=== PATIENT | male | born 1975 | race Caucasian/White ===

== ENCOUNTER 2016-10-03 15:01 | Observation (INO) | payer BC ==
[2016-10-03] MEDS ORDERED: Pepcid 20 MG VIAL IV ONE ×2 (15:18→15:23)
[2016-10-03] MEDS ORDERED: NITRO-BID 2% UD PACKETS TOP ONE (15:18)
[2016-10-03] MEDS ORDERED: BABY ASPIRIN 81 MG CHEW PO ONE (15:18)
[2016-10-03] MEDS ORDERED: NITRO-BID 2% UD PACKETS ONE (15:23)
[2016-10-03] MEDS ORDERED: BABY ASPIRIN 81 MG CHEW ONE (15:23)
--- NOTE | 2016-10-03 15:23 | ERPHSYRPT ---
- History of Present Illness Time Seen by Provider: 10/03/16 15:06 Historian: patient Patient Subjective Stated Complaint: pt states he was at work and at 1400 he began having chest pain. pt states he has had similar episodes in the past and seen Dr. Chandler for treatment. Triage Nursing Assessment: pt pink, warm, dry. radial pulses strong. lung sounds clear and equal. Physician History: CC: chest pain hx: 41 y/o patient with no local doctor. He has fam hx of heart disease. He had prior testing per Dr Chandler showing weakened heart valve and cardiac muscle problem. He was at work today. Noted left chest pressure like someone sitting on the chest with pain in the left arm and tingle in the left hand. Some sharp chest pains as well. Continues to have pain. Not short of breath. Recent cough and cold illness. 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 Severity of Pain-Max: moderate Severity of Pain-Current: moderate Aspirin Treatment Today: 81 mg x 4, provided by ED Allergies/Adverse Reactions: amoxicillin trihydrate [From Augmentin] Allergy (Mild, Verified 10/03/16 15:07) Hives azithromycin [From Zithromax] Allergy (Mild, Verified 10/03/16 15:07) Hives morphine Allergy (Mild, Verified 10/03/16 15:07) Hives potassium clavulanate [From Augmentin] Allergy (Mild, Verified 10/03/16 15:07) Hives Penicillins Allergy (Verified 10/03/16 15:07) Home Medications: Acetaminophen/Chlorpheniramine [Coricidin Hbp Cold & Flu Tab] 1 each PO DAILY [History] Hx Tetanus, Diphtheria Vaccination/Date Given: Yes (up to date) Hx Influenza Vaccination/Date Given: No Hx Pneumococcal Vaccination/Date Given: No Immunizations Up to Date: Yes - Review of Systems Constitutional: No Fever, No Chills Eyes: No Symptoms Ears, Nose, & Throat: No Symptoms Respiratory: No Cough, No Dyspnea Cardiac: Chest Pain, No Edema, No Syncope Abdominal/Gastrointestinal: No Abdominal Pain, No Nausea, No Vomiting Genitourinary Symptoms: No Dysuria Musculoskeletal: No Back Pain Skin: No Rash Neurological: No Headache All Other Systems: Reviewed and Negative - Past Medical History Pertinent Past Medical History: Yes Neurological History: Migraines ENT History: No Pertinent History Cardiac History: No Pertinent History Respiratory History: No Pertinent History Endocrine Medical History: No Pertinent History Musculoskeletal History: Other GI Medical History: No Pertinent History History: No Pertinent History Psycho-Social History: No Pertinent History Male Reproductive Disorders: No Pertinent History Other Medical History: left shoulder detached labum - Past Surgical History Past Surgical History: Yes Neuro Surgical History: No Pertinent History Cardiac: No Pertinent History Respiratory: No Pertinent History Gastrointestinal: Cholecystectomy Genitourinary: No Pertinent History Musculoskeletal: Orthopedic Surgery Male Surgical History: No Pertinent History Other Surgical History: pt has fingers reattached. left shoulder repair - Social History Smoking Status: Current every day smoker How long have you smoked: 27 Exposure to second hand smoke: No Alcohol Use: None Drug Use: none Patient Lives Alone: No Significant Family History: no pertinent family hx - Nursing Vital Signs Temperature: 98 F Temperature Source: Oral Pulse Rate: 81 Respiratory Rate: 20 Pain Intensity: 8 - Physical Exam General Appearance: alert Eye Exam: PERRL/EOMI Ears, Nose, Throat Exam: normal ENT inspection, moist mucous membranes Neck Exam: normal inspection, non-tender, supple Respiratory Exam: normal breath sounds, lungs clear Cardiovascular Exam: regular rate/rhythm, other (2+ femoral pulses), No murmur Gastrointestinal/Abdomen Exam: soft, No tenderness, No distention Back Exam: normal inspection Extremity Exam: normal inspection Neurologic Exam: alert, oriented x 3, cooperative, sensation nml, No motor deficits Skin Exam: warm, dry, No rash SpO2 Interpretation: normal SpO2: 99 Oxygen Delivery: Room Air - Course Nursing assessment & vital signs reviewed: Yes EKG Interpreted by Me: RATE (74), Sinus Rhythm, NORMAL AXIS, NORMAL INTERVALS ( QTc 411), NORMAL QRS, NORMAL ST-T - Radiology Exams cxr X-ray Interpretation: Discussed w/ radiologist, Negative Ordered Tests: Active Orders 24 hr Category Date Time Status 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 Care 10/03/16 15:08 Active EKG-ER Only STAT Care 10/03/16 15:08 Active IV Insertion STAT Care 10/03/16 15:18 Active Pulse Oximetry (ED) STAT Care 10/03/16 15:09 Active CHEST 1 VIEW (PORTABLE) Stat Exams 10/03/16 15:19 Completed CBC W DIFF Stat Lab 10/03/16 15:24 Completed CMP Stat Lab 10/03/16 15:24 Completed TROPONIN Q3H Lab 10/03/16 15:30 Completed TROPONIN Q3H Lab 10/03/16 18:30 Ordered TROPONIN Q3H Lab 10/03/16 21:30 Ordered TROPONIN Q3H Lab 10/04/16 00:30 Ordered TROPONIN Q3H Lab 10/04/16 03:30 Ordered Medication Summary Discontinued Medications Generic Name Dose Route Start Last Admin Trade Name Freq PRN Reason Stop Dose Admin Aspirin 324 mg 10/03/16 15:18 10/03/16 15:24 Baby Aspirin 81 Mg Chew PO 10/03/16 15:19 324 mg STAT ONE Administration Aspirin Confirm 10/03/16 15:23 Baby Aspirin 81 Mg Chew Administered 10/03/16 15:24 Dose 324 mg .ROUTE .STK-MED ONE Famotidine 20 mg 10/03/16 15:18 10/03/16 15:24 Pepcid 20 Mg Vial IV 10/03/16 15:19 20 mg STAT ONE Administration Famotidine Confirm 10/03/16 15:23 Pepcid 20 Mg Vial Administered 10/03/16 15:24 Dose 20 mg IV .STK-MED ONE Nitroglycerin 1 gm 10/03/16 15:18 10/03/16 15:24 Nitro-Bid 2% Ud Packets TOP 10/03/16 15:19 1 gm STAT ONE Administration Nitroglycerin Confirm 10/03/16 15:23 Nitro-Bid 2% Ud Packets Administered 10/03/16 15:24 Dose 1 gm .ROUTE .STK-MED ONE Lab/Rad Data: Laboratory Result Diagrams 10/03/16 15:24 10/03/16 15:24 Laboratory Results 10/03/16 10/03/16 10/03/16 Range/Units 15:30 15:24 15:24 WBC 8.2 (4.0-10.5) K/mm3 RBC 4.84 (4.1-5.6) M/mm3 Hgb 15.0 (12.5-18.0) gm/dl Hct 44.2 (42-50) % MCV 91.3 (78-100) fl MCH 31.0 (26-32) pg MCHC 33.9 (32-36) g/dl RDW 12.4 (11.5-14.0) % Plt Count 275 (150-450) K/mm3 MPV 9.8 H (6-9.5) fl Gran % 55.3 (36.0-66.0) % Lymphocytes % 36.1 (24.0-44.0) % Monocytes % 7.0 (0.0-12.0) % Eosinophils % 1.1 (0.00-5.0) % Basophils % 0.5 (0.0-0.4) % Basophils # 0.04 (0-0.4) Sodium 140 (136-145) mEq/L Potassium 3.5 (3.5-5.1) mEq/L Chloride 101 (98-107) mEq/L Carbon Dioxide 25.5 (21-32) mEq/L Anion Gap 16.7 H (5-15) MEQ/L BUN 14 (9-20) mg/dL Creatinine 1.10 (0.55-1.30) mg/dl Estimated GFR > 60 ML/MIN Glucose 108 (70-110) MG/DL Calcium 9.2 (8.5-10.1) mg/dL Total Bilirubin 0.4 (0.2-1.0) mg/dL AST 27 (15-37) U/L ALT 55 (12-78) U/L Alkaline Phosphatase 76 (46-116) U/L Troponin I < 0.017 (0.000-0.056) ng/ml Serum Total Protein 8.0 (6.4-8.2) gm/dL Albumin 4.1 (3.4-5.0) g/dL - Progress Progress Note: 10/03/16 16:29 Prior echo showed diastolic dysfunction and EF 60%. Normal stress treadmill last week. Pain improved with NTG paste. Called Dr Sherly Navarro and will place in tele observation. Counseled pt/family regarding: lab results, diagnosis, need for follow-up, rad results - Departure Time of Disposition: 16:29 Departure Disposition: Observation Clinical Impression: Chest pain, rule out acute myocardial infarction Condition: Stable Critical Care Time: No
[2016-10-03 15:30] LABS: BASOPHIL % 0.5 % (0.0-0.4); Eosinophil % 1.1 % (0.00-5.0); Granulocytes % 55.3 % (36.0-66.0); Lymphocytes % 36.1 % (24.0-44.0); Mean Cell Volume 91.3 fl (78-100); Mean Platelet Volume 9.8 fl (6-9.5); Platelet Count 275 K/mm3 (150-450); Red Blood Count 4.84 M/mm3 (4.1-5.6); Red Cell Distribution Width 12.4 % (11.5-14.0); White Blood Count 8.2 K/mm3 (4.0-10.5)
[2016-10-03 15:51] LABS: ALBUMIN 4.1 g/dL (3.4-5.0); ALKALINE PHOSPHATASE 76 U/L (46-116); ANION GAP 16.7 MEQ/L (5-15); BILIRUBIN,TOTAL 0.4 mg/dL (0.2-1.0); BLOOD UREA NITROGEN 14 mg/dL (9-20); CHLORIDE 101 mEq/L (98-107); Carbon Dioxide 25.5 mEq/L (21-32); Glucose 108 MG/DL (70-110); Potassium 3.5 mEq/L (3.5-5.1); SGOT/AST 27 U/L (15-37); SGPT/ALT 55 U/L (12-78); SODIUM 140 mEq/L (136-145)
--- NOTE | 2016-10-03 15:51 | XRAY ---
Indication: Chest pain. Comparison: July 04, 2016. Portable chest again demonstrates normal heart and lungs. Bony thorax intact. No new/acute findings.
[2016-10-03] MEDS ORDERED: Zofran 4 MG/2 ML VIAL IV PRN (16:58)
[2016-10-03] MEDS ORDERED: MAALOX ES 30 ML UNIT DOSE PO PRN (16:58)
[2016-10-03] MEDS ORDERED: MILK OF MAGNESIA 30 ML PO PRN (16:58)
[2016-10-03] MEDS ORDERED: Senokot-S Tablet PO PRN (16:58)
[2016-10-03] MEDS ORDERED: NICODERM CQ 14 MG TOP SCH (18:30)
[2016-10-03] MEDS: NITRO-BID 2% UD PACKETS TOP SCH (22:36)
[2016-10-03] MEDS: TYLENOL 325 MG PO PRN (22:41)
[2016-10-04] MEDS: TYLENOL 325 MG PO PRN (04:01)
[2016-10-04] MEDS: NITRO-BID 2% UD PACKETS TOP SCH (06:42)
[2016-10-04 07:28] VITALS: BP 97/52; PULSE 61; O2SAT 96
--- NOTE | 2016-10-04 08:10 | PCM.HP ---
History of Present Illness - Chief Complaint Chief Complaint: CHEST PAIN R/O OH Date: 10/04/16 History of Present Illness: is a 41 year old male. stress test and echo done 06/2016 Dr. Chandler with no ischemia and the Echo with diastolic dysfunction and LVH. He was having this for chest pains at that time as well. He did not have a consult with Dr. Chandler just the testing ordered by his pcp. Yesterday he began to develop sharp pains with deep breathing or with beating of his heart on the left side of his chest and tingling sharp feelings in his left arm. He has strong family hx of heart disease and thus presented to the ED. He was given nitro and that seemed to improve the pain. He denies any coughing or injury. He smokes and denies illicit drug use or excess caffeine. Slowly overnight the pain has eased up and he does not have any pain this morning. THe nitro was removed early this am due to low bp and the chest pain has not recurred yet. THere was no improvement in the pain with positional changes. - Review of Systems Constitutional: No Fever, No Chills Eyes: No Symptoms Ears, Nose, & Throat: No Symptoms Respiratory: No Cough, No Short Of Breath Cardiac: Chest Pain, Palpitations (chronic), No Edema, No Syncope, No Orthopnea , No PND Abdominal/Gastrointestinal: No Abdominal Pain, No Nausea, No Vomiting, No Diarrhea Genitourinary Symptoms: No Dysuria Musculoskeletal: No Back Pain, No Neck Pain Skin: No Rash Neurological: No Dizziness, No Focal Weakness, No Sensory Changes Psychological: No Symptoms Endocrine: No Symptoms Hematologic/Lymphatic: No Symptoms Immunological/Allergic: No Symptoms Medications & Allergies Home Medications: Home Medication List Acetaminophen/Chlorpheniramine [Coricidin Hbp Cold & Flu Tab] 1 each PO DAILY [History Confirmed 10/03/16] Acetaminophen/Chlorpheniramine [Coricidin Hbp Cold & Flu Tab] 1 each PO HS 10/03 [History Confirmed 10/03/16] Allergies/Adverse Reactions: Allergies Allergy/AdvReac Type Severity Reaction Status Date / Time amoxicillin trihydrate Allergy Mild Hives Verified 10/03/16 15:07 [From Augmentin] azithromycin [From Zithromax] Allergy Mild Hives Verified 10/03/16 15:07 morphine Allergy Mild Hives Verified 10/03/16 15:07 potassium clavulanate Allergy Mild Hives Verified 10/03/16 15:07 [From Augmentin] Penicillins Allergy Verified 10/03/16 15:07 - Past Medical History Past Medical History: Yes Neurological History: Migraines ENT History: No Pertinent History Cardiac History: Angina Respiratory History: No Pertinent History Endocrine Medical History: No Pertinent History Musculoskelatal History: Other GI Medical History: No Pertinent History History: No Pertinent History Pyscho-Social History: No Pertinent History Male Reproductive Disorders: No Pertinent History Comment: left shoulder detached labum - Past Surgical History Past Surgical History: Yes Neuro Surgical History: No Pertinent History Cardiac History: No Pertinent History Respiratory Surgery: No Pertinent History GI Surgical History: Cholecystectomy Genitourinary Surgical Hx: No Pertinent History Musculskeletal Surgical Hx: Orthopedic Surgery Male Surgical History: No Pertinent History Other Surgical History: pt has fingers reattached. left shoulder repair - Social History Smoking Status: Current every day smoker How long have you smoked: 26 YEARS Exposure to second hand smoke: No Alcohol: None Drug Use: none Significant Family History: no pertinent family hx - Physical Exam Vital Signs: Vital Signs - 24 hr Temp Pulse Pulse Resp BP Pulse Ox 10/04/16 07:27 98.1 F 61 18 97/52 96 10/04/16 04:00 97.7 F 54 L 19 103/59 97 10/03/16 23:18 97.7 F 55 L 18 119/68 96 10/03/16 19:39 97.4 F 64 19 127/58 96 10/03/16 16:58 98.7 F 71 18 132/80 98 10/03/16 16:33 98 F 81 20 99 10/03/16 15:53 99 H 18 143/70 100 10/03/16 15:14 79 10/03/16 15:09 99 10/03/16 15:02 98 F 81 20 153/91 99 General Appearance: no apparent distress, alert Neurologic Exam: alert, oriented x 3, cooperative, normal mood/affect, nml cerebellar function, nml station & gait, sensation nml, No motor deficits Eye Exam: PERRL/EOMI, eyes nml inspection Ears, Nose, Throat Exam: normal ENT inspection, TMs normal, pharynx normal, moist mucous membranes Neck Exam: normal inspection, non-tender, supple, full range of motion Respiratory Exam: normal breath sounds, lungs clear, No respiratory distress Cardiovascular Exam: regular rate/rhythm, normal heart sounds, normal peripheral pulses Gastrointestinal/Abdomen Exam: soft, normal bowel sounds, No tenderness, No mass Back Exam: normal inspection, normal range of motion, No CVA tenderness, No vertebral tenderness Extremity Exam: normal inspection, normal range of motion, pelvis stable Skin Exam: normal color, warm, dry, No rash Lymphatic Exam: No adenopathy Results - Labs Lab/Micro Results: Lab Results-Last 24 Hours 10/03/16 10/03/16 10/04/16 Range/Units 18:42 21:23 00:26 Troponin I < 0.017 < 0.017 < 0.017 (0.000-0.056) ng/ml Triglycerides (30-200) mg/dL Cholesterol (100-200) mg/dL LDL Cholesterol (5-99) mg/dL HDL Cholesterol (35-60) mg/dL Heart Disease Risk Ratio 10/04/16 10/04/16 Range/Units 03:34 03:34 Troponin I < 0.017 (0.000-0.056) ng/ml Triglycerides 112 (30-200) mg/dL Cholesterol 204 H (100-200) mg/dL LDL Cholesterol 141 H (5-99) mg/dL HDL Cholesterol 46 (35-60) mg/dL Heart Disease Risk Ratio 4.4 - Other Procedures and Tests Respiratory Therapy 10/05/16 05:00 EKG ONCE 10/06/16 05:00 EKG ONCE Assessment/Plan (1) Chest pain, rule out acute myocardial infarction Current Visit: Yes Status: Acute Assessment & Plan: it seems with the sharp pains with the deep breathing and the improvement with no troponin elevation this was not an OH. He does have J point elevation in diffuse leads and may be having mild pericarditis explaining the pain. There is no murmur now and he is asymptomatic this am with the recent cardiac work up 3 months ago will defer further testing now to cardiology and set up outpatient f/u appointment with DR. Chandler Code(s): R07.9 - CHEST PAIN, UNSPECIFIED (2) LVH (left ventricular hypertrophy) Current Visit: Yes Status: Chronic Code(s): I51.7 - CARDIOMEGALY (3) Tobacco abuse Current Visit: Yes Status: Chronic Code(s): Z72.0 - TOBACCO USE
--- NOTE | 2016-10-04 08:16 | PCM.DCORD ---
- Discharge Discharge Date: 10/04/16 Disposition: Home, Self-Care Condition: Stable Prescriptions: Discontinued Acetaminophen/Chlorpheniramine [Coricidin Hbp Cold & Flu Tab] 1 each PO DAILY Acetaminophen/Chlorpheniramine [Coricidin Hbp Cold & Flu Tab] 1 each PO HS Follow up with: ARIANNE JULIAN NP [Primary Care Provider] - MAXIM GRIGGS [ACTIVE STAFF] - 1 Week Forms: Patient Portal Information
[2016-10-04] MEDS ORDERED: Ecotrin 325 MG PO SCH (10:00)
== END 2016-10-04 09:40 | disposition home or self-care (01) ==
LOC: ED 15:01 → MED SURG 16:57
PROVIDERS: ADMIT Family Medicine; ATTEND Family Medicine
DX: R07.9 Chest pain, unspecified (principal); I51.7 Cardiomegaly; K21.9 Gastro-esophageal reflux disease without esophagitis; Z82.49 Family history of ischemic heart disease and other diseases of the circulatory system; Z72.0 Tobacco use
CPT/HCPCS: 36000; 36415; 71010; 80053; 80061; 83690; 83721; 84484; 85025; 93005; 93041; 93268; 96374; 99284; 99285; G0378

== ENCOUNTER 2017-02-07 07:58 | Observation (INO) | payer BC ==
[2017-02-07] MEDS ORDERED: BABY ASPIRIN 81 MG CHEW PO ONE (08:09)
[2017-02-07] MEDS ORDERED: Nitrostat 0.4 MG (ED) SL ONE ×4 (08:09→09:32)
--- NOTE | 2017-02-07 08:09 | ERPHSYRPT ---
- History of Present Illness Time Seen by Provider: 02/07/17 08:02 Historian: patient Exam Limitations: no limitations Physician History: FOR THE PAST 45 MINUTES PT HAS HAD A HEADACHE AND SHARP LEFT ANTERIOR CHEST PAIN RADIATING TO THE LEFT HAND. PT DENIES SHORTNESS OF AIR, ABDOMINAL PAIN, NAUSEA, VOMITING, FEVER. Aspirin Treatment Today: 81 mg x 4, provided by ED Allergies/Adverse Reactions: amoxicillin trihydrate [From Augmentin] Allergy (Mild, Verified 10/03/16 15:07) Hives azithromycin [From Zithromax] Allergy (Mild, Verified 10/03/16 15:07) Hives morphine Allergy (Mild, Verified 10/03/16 15:07) Hives potassium clavulanate [From Augmentin] Allergy (Mild, Verified 10/03/16 15:07) Hives Penicillins Allergy (Verified 10/03/16 15:07) Home Medications: Aspirin 81 gm Chew [Baby Aspirin 81 mg Chew] 81 mg PO DAILY 02/07/17 [ History] Metoprolol Tartrate 25 mg [Lopressor 25MG Tab] 25 mg PO AC 02/07/17 [ History] Hx Tetanus, Diphtheria Vaccination/Date Given: Yes (up to date) Hx Influenza Vaccination/Date Given: No Hx Pneumococcal Vaccination/Date Given: No - Review of Systems Constitutional: No Fever Respiratory: No Dyspnea Cardiac: Chest Pain Abdominal/Gastrointestinal: No Abdominal Pain, No Nausea, No Vomiting Musculoskeletal: Other (LEFT UPPER EXTREMITY PAIN) Neurological: Headache Endocrine: No Excessive Sweating All Other Systems: Reviewed and Negative - Past Medical History Pertinent Past Medical History: Yes Neurological History: Migraines ENT History: No Pertinent History Cardiac History: Angina Respiratory History: No Pertinent History Endocrine Medical History: No Pertinent History Musculoskeletal History: Other GI Medical History: No Pertinent History History: No Pertinent History Psycho-Social History: No Pertinent History Male Reproductive Disorders: No Pertinent History Other Medical History: left shoulder detached labum - Past Surgical History Past Surgical History: Yes Neuro Surgical History: No Pertinent History Cardiac: No Pertinent History Respiratory: No Pertinent History Gastrointestinal: Cholecystectomy Genitourinary: No Pertinent History Musculoskeletal: Orthopedic Surgery Male Surgical History: No Pertinent History Other Surgical History: pt has fingers reattached. left shoulder repair - Social History Smoking Status: Current every day smoker How long have you smoked: 26 YEARS Exposure to second hand smoke: No Alcohol Use: None Drug Use: none Patient Lives Alone: No Significant Family History: no pertinent family hx - Nursing Vital Signs Nursing Vital Signs: Initial Vital Signs Pulse Rate [] 72 Pulse Rate 61 Respiratory Rate 18 Blood Pressure [] 145/85 Pain Intensity 6 - Physical Exam General Appearance: alert Eye Exam: PERRL/EOMI Ears, Nose, Throat Exam: TMs normal, pharynx normal, moist mucous membranes Neck Exam: normal inspection Respiratory Exam: lungs clear Cardiovascular Exam: normal heart sounds Gastrointestinal/Abdomen Exam: soft, normal bowel sounds Back Exam: normal range of motion Extremity Exam: normal inspection, No pedal edema Neurologic Exam: alert, cooperative Skin Exam: warm, dry - Course Nursing assessment & vital signs reviewed: Yes EKG Interpreted by Me: RATE (79), Sinus Rhythm, NORMAL AXIS, NORMAL INTERVALS - Radiology Exams Chest X-ray Interpretation: Interpreted by me, No Pneumonia Ordered Tests: Active Orders 24 hr Category Date Time Status Issuing Operator STAT Care 02/07/17 08:09 Active EKG-ER Only STAT Care 02/07/17 08:09 Active IV Insertion STAT Care 02/07/17 08:09 Active Oxygen-ED Only NASAL CANNULA 2 lpm Care 02/07/17 08:09 Active Pulse Oximetry (ED) STAT Care 02/07/17 08:09 Active CHEST 1 VIEW (PORTABLE) Stat Exams 02/07/17 08:09 Taken AMYLASE Stat Lab 02/07/17 08:25 Completed CBC W DIFF Stat Lab 02/07/17 08:25 Completed CMP Stat Lab 02/07/17 08:25 Completed LIPASE Stat Lab 02/07/17 08:25 Completed MAGNESIUM Stat Lab 02/07/17 08:25 Completed NT PRO BNP Stat Lab 02/07/17 08:25 Completed PROTIME WITH INR Stat Lab 02/07/17 08:25 Completed PTT Stat Lab 02/07/17 08:25 Completed TROPONIN Q3H Lab 02/07/17 08:25 Completed TROPONIN Q3H Lab 02/07/17 11:15 Ordered TROPONIN Q3H Lab 02/07/17 14:15 Ordered TROPONIN Q3H Lab 02/07/17 17:15 Ordered TROPONIN Q3H Lab 02/07/17 20:15 Ordered UA W/RFX UR CULTURE Stat Lab 02/07/17 08:09 Ordered Urine Triage Profile Stat Lab 02/07/17 08:09 Ordered Transfer Order Routine Transfer 02/07/17 09:15 Ordered Medication Summary Generic Name Dose Route Start Last Admin Trade Name Nunu PRN Reason Stop Dose Admin Sodium Chloride 1,000 mls @ 100 mls/hr 02/07/17 08:15 02/07/17 08:15 Sodium Chloride 0.9% 1000 Ml IV 03/09/17 08:14 100 mls/hr .Q10H FRANCIS Administration Discontinued Medications Generic Name Dose Route Start Last Admin Trade Name Nunu PRN Reason Stop Dose Admin Aspirin 324 mg 02/07/17 08:09 02/07/17 08:14 Baby Aspirin 81 Mg Chew PO 02/07/17 08:10 324 mg STAT ONE Administration Aspirin Confirm 02/07/17 08:16 Baby Aspirin 81 Mg Chew Administered 02/07/17 08:17 Dose 324 mg .ROUTE .STK-MED ONE Nitroglycerin 0.4 mg 02/07/17 08:09 02/07/17 08:14 Nitrostat 0.4 Mg (Ed) SL 02/07/17 08:10 0.4 mg STAT ONE Administration Nitroglycerin Confirm 02/07/17 08:16 Nitrostat 0.4 Mg (Ed) Administered 02/07/17 08:17 Dose 0.4 mg SL .STK-MED ONE Nitroglycerin 0.4 mg 02/07/17 09:24 Nitrostat 0.4 Mg (Ed) SL 02/07/17 09:25 STAT ONE Lab/Rad Data: Laboratory Result Diagrams 02/07/17 08:25 02/07/17 08:25 Laboratory Results 02/07/17 02/07/17 02/07/17 Range/Units 08:25 08:25 08:25 WBC (4.0-10.5) K/mm3 RBC (4.1-5.6) M/mm3 Hgb (12.5-18.0) gm/dl Hct (42-50) % MCV (78-100) fl MCH (26-32) pg MCHC (32-36) g/dl RDW (11.5-14.0) % Plt Count (150-450) K/mm3 MPV (6-9.5) fl Gran % (36.0-66.0) % Lymphocytes % (24.0-44.0) % Monocytes % (0.0-12.0) % Eosinophils % (0.00-5.0) % Basophils % (0.0-0.4) % Basophils # (0-0.4) INR 1.04 (0.8-3.0) APTT 29.7 (24.1-36.1) SECONDS Sodium 137 (136-145) mEq/L Potassium 3.6 (3.5-5.1) mEq/L Chloride 102 (98-107) mEq/L Carbon Dioxide 24.1 (21-32) mEq/L Anion Gap 14.4 (5-15) MEQ/L BUN 15 (9-20) mg/dL Creatinine 1.20 (0.55-1.30) mg/dl Estimated GFR > 60 ML/MIN Glucose 169 H (70-110) MG/DL Calcium 9.1 (8.5-10.1) mg/dL Magnesium 1.9 (1.8-2.4) mg/dL Total Bilirubin 0.40 (0.2-1.0) mg/dL AST 26 (15-37) U/L ALT 49 (12-78) U/L Alkaline Phosphatase 61 (46-116) U/L Troponin I < 0.017 (0.000-0.056) ng/ml NT-Pro-B Natriuret Pep 30 (0-125) pg/ml Serum Total Protein 7.7 (6.4-8.2) gm/dL Albumin 3.9 (3.4-5.0) g/dL Amylase 35 (25-115) U/L Lipase 124 (73-393) U/L 02/07/17 Range/Units 08:25 WBC 9.2 (4.0-10.5) K/mm3 RBC 4.78 (4.1-5.6) M/mm3 Hgb 15.1 (12.5-18.0) gm/dl Hct 44.5 (42-50) % MCV 93.1 (78-100) fl MCH 31.6 (26-32) pg MCHC 33.9 (32-36) g/dl RDW 12.1 (11.5-14.0) % Plt Count 254 (150-450) K/mm3 MPV 10.0 H (6-9.5) fl Gran % 61.9 (36.0-66.0) % Lymphocytes % 29.5 (24.0-44.0) % Monocytes % 7.0 (0.0-12.0) % Eosinophils % 1.2 (0.00-5.0) % Basophils % 0.4 (0.0-0.4) % Basophils # 0.04 (0-0.4) INR (0.8-3.0) APTT (24.1-36.1) SECONDS Sodium (136-145) mEq/L Potassium (3.5-5.1) mEq/L Chloride (98-107) mEq/L Carbon Dioxide (21-32) mEq/L Anion Gap (5-15) MEQ/L BUN (9-20) mg/dL Creatinine (0.55-1.30) mg/dl Estimated GFR ML/MIN Glucose (70-110) MG/DL Calcium (8.5-10.1) mg/dL Magnesium (1.8-2.4) mg/dL Total Bilirubin (0.2-1.0) mg/dL AST (15-37) U/L ALT (12-78) U/L Alkaline Phosphatase (46-116) U/L Troponin I (0.000-0.056) ng/ml NT-Pro-B Natriuret Pep (0-125) pg/ml Serum Total Protein (6.4-8.2) gm/dL Albumin (3.4-5.0) g/dL Amylase (25-115) U/L Lipase (73-393) U/L - Progress Discussed with Dr.: Fraser (OBS - [id number]) - Departure Time of Disposition: 09:31 Departure Disposition: Observation Clinical Impression: CHEST PAIN Condition: Fair Critical Care Time: No Referrals: DOCTOR,NO FAMILY [Primary Care Provider] -
[2017-02-07] MEDS: Sodium Chloride 0.9% 1000 ML 1,000 ML IV SCH (08:15)
[2017-02-07] MEDS ORDERED: BABY ASPIRIN 81 MG CHEW ONE (08:16)
[2017-02-07] MEDS ORDERED: Sodium Chloride 0.9% 1000 ML 1,000 ML ONE (08:16)
[2017-02-07 08:29] LABS: BASOPHIL % 0.4 % (0.0-0.4); Eosinophil % 1.2 % (0.00-5.0); Granulocytes % 61.9 % (36.0-66.0); Lymphocytes % 29.5 % (24.0-44.0); Mean Cell Volume 93.1 fl (78-100); Mean Corpuscular Hemoglobin 31.6 pg (26-32); Platelet Count 254 K/mm3 (150-450); Red Blood Count 4.78 M/mm3 (4.1-5.6); Red Cell Distribution Width 12.1 % (11.5-14.0); White Blood Count 9.2 K/mm3 (4.0-10.5)
[2017-02-07 09:03] LABS: ALBUMIN 3.9 g/dL (3.4-5.0); ALKALINE PHOSPHATASE 61 U/L (46-116); ANION GAP 14.4 MEQ/L (5-15); BLOOD UREA NITROGEN 15 mg/dL (9-20); CHLORIDE 102 mEq/L (98-107); Carbon Dioxide 24.1 mEq/L (21-32); Glucose 169 MG/DL (70-110); LIPASE 124 U/L (73-393); MAGNESIUM 1.9 mg/dL (1.8-2.4); Potassium 3.6 mEq/L (3.5-5.1); SGOT/AST 26 U/L (15-37); SGPT/ALT 49 U/L (12-78); SODIUM 137 mEq/L (136-145); Total Protein 7.7 gm/dL (6.4-8.2)
[2017-02-07 09:04] LABS: INR 1.04 (0.8-3.0); PROTIME 11.7 SECONDS (8.83-12.87)
[2017-02-07 09:07] LABS: PTT 29.7 SECONDS (24.1-36.1)
[2017-02-07 09:32] LABS: ADD URINE CULTURE? NO (NO); Bilirubin NEGATIVE (NEGATIVE); Blood NEGATIVE Ery/ul (0-5); COMPLETE URINE MICROSCOPIC? NO; Collection Type VOID; Glucose NEGATIVE (NEGATIVE); Leukocyte Esterase NEGATIVE (NEGATIVE)
--- NOTE | 2017-02-07 09:38 | XRAY ---
Indication: Left sternum and left arm pain. Comparison: October 03, 2016. Portable chest again demonstrates normal heart and lungs. Bony thorax intact again with minimal scoliosis.
[2017-02-07] MEDS ORDERED: Phenergan 25 MG INJ IV PRN (10:07)
[2017-02-07] MEDS ORDERED: Sodium Chloride 0.9% 1000 ML 1,000 ML IV SCH (10:07)
[2017-02-07] MEDS: TYLENOL 325 MG PO PRN ×2 (11:32→17:11)
[2017-02-07] MEDS: NICODERM CQ 14 MG TOP SCH (12:51)
--- NOTE | 2017-02-07 12:56 | HP ---
HISTORY OF PRESENT ILLNESS: This is a 41 year-old man who states that he does not have a primary care physician and only sees Dr. Chandler for his care at this time. He presented to the emergency department with chest pain. He said the pain started about 0615 hours this morning and seemed to be getting worse. He was at work and left at 0730 hours in the morning. 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 He reports the left arm was aching, too, and he felt like someone had him in a bear hug. He reports he has had problems now for the past year and a half with chest pain and was here in September 2016 with chest pain at which time he was ruled out and then followed up with Dr. Chandler. He reports that Dr. Chandler did a stress test in April 2016 with a treadmill that was normal. The patient reports now the chest pain is a little bit better but still present. He reports this on the left side and feels like it is stabbing with an ice pick pain. He denies any nausea or vomiting. There is sweating with it. He reports a little bit of shortness of breath with it. REVIEW OF SYSTEMS: He denies any fever. No cough. No rhinorrhea. Otherwise review of systems is as noted in history of present illness. PAST MEDICAL HISTORY: Chest pain. PAST SURGICAL HISTORY: He reports that he had two fingers cut off and then surgically replaced. Left knee surgery. Cholecystectomy. Left shoulder surgery. MEDICATIONS: Aspirin 81 mg p.o. daily, metoprolol tartrate 25 mg p.o. daily, LIVALO 2 mg p.o. daily. ALLERGIES: AMOXICILLIN, AUGMENTIN, PENICILLIN, MORPHINE, ERYTHROMYCIN, AZITHROMYCIN. SOCIAL HISTORY: He smokes five cigarettes per day. He denies any alcohol use. He denies any illicit drug use including cocaine, marijuana or bath salts. FAMILY HISTORY: His mother is living and has coronary artery disease. His father is and had lung cancer. PHYSICAL EXAMINATION: VITAL SIGNS: Temperature current 98.4F, temperature max 98.4F, heart rate 54 to 73, respiratory rate 18 to 20, blood pressure 115 to 145 over 65 to 85, weight is 76 kg. Oxygen saturation 97% on room air. GENERAL: The patient is sitting up in bed and a pleasant talkative man in no acute distress. CVS: He has a regular rate and rhythm. No murmurs, gallops or rubs are appreciated. CHEST: Clear to auscultation bilaterally. No crackles or wheezes. ABDOMEN: Soft, nontender, nondistended with normal bowel sounds. EXTREMITIES: No clubbing, cyanosis or edema. SKIN: Warm, dry and intact and with tattoos. LABORATORY DATA AND TESTS: CBC within normal limits. International normalized ratio 1.04. CMP revealed a glucose of 169. He has had two troponins that have been less than 0.017. UA was negative. Urine toxicology was positive for cocaine. He had a chest x-ray portable that demonstrated normal lungs and heart, minimal scoliosis. EKG was normal sinus rhythm without any ST or T-wave changes. Heart rate of 79. ASSESSMENT AND PLAN: 1) CHEST PAIN: The patient had serial troponins. An EKG is ordered. I have asked Dr. Chandler, his glove presser, to see him while he is here. Will also try to get the results from Dr. Chandler's stress test. Will check a D-dimer and if that is positive will plan to do a chest CT with IV contrast. I have held his metoprolol which I had originally ordered when I did not know that in the emergency room his urine toxicology was positive for cocaine as this was not reported to me by the emergency room doctor. I called the greenhouse grower as soon as I realized this and had her make sure they had not given the metoprolol that they do not give it and also discontinue the order in his chart. I will leave the discretion of restarting his metoprolol to his glove presser. Currently his blood pressure is well controlled. He has been started on aspirin daily. He is also continued on statin. 2) TOBACCO ABUSE: The patient was counseled the best thing he could do would be to quit smoking. 3) ILLICIT DRUG USE: Again, his urine tox was positive for cocaine although the patient adamantly denies this. The patient was instructed that cocaine could cause heart problems and could cause .
[2017-02-07] MEDS: Nitrostat 0.4 MG Tablet SL PRN ×2 (19:10→19:26)
[2017-02-07] MEDS ORDERED: ZOCOR 20MG PO SCH (22:00)
[2017-02-08] MEDS: Sodium Chloride 0.9% 1000 ML 1,000 ML IV SCH (04:22)
[2017-02-08 05:14] LABS: BASOPHIL % 0.5 % (0.0-0.4); Eosinophil % 3.1 % (0.00-5.0); Granulocytes % 48.5 % (36.0-66.0); Lymphocytes % 40.2 % (24.0-44.0); Mean Cell Volume 94.4 fl (78-100); Mean Corpuscular Hemoglobin 31.5 pg (26-32); Mean Platelet Volume 9.6 fl (6-9.5); Monocytes % 7.7 % (0.0-12.0); Platelet Count 217 K/mm3 (150-450); Red Blood Count 4.64 M/mm3 (4.1-5.6); Red Cell Distribution Width 12.2 % (11.5-14.0); White Blood Count 6.1 K/mm3 (4.0-10.5)
[2017-02-08 05:37] LABS: ALBUMIN 3.2 g/dL (3.4-5.0); ALKALINE PHOSPHATASE 54 U/L (46-116); ANION GAP 11.2 MEQ/L (5-15); BLOOD UREA NITROGEN 11 mg/dL (9-20); CHLORIDE 108 mEq/L (98-107); Carbon Dioxide 24.8 mEq/L (21-32); Glucose 110 MG/DL (70-110); Potassium 4.5 mEq/L (3.5-5.1); SGOT/AST 20 U/L (15-37); SGPT/ALT 38 U/L (12-78); SODIUM 140 mEq/L (136-145); Total Protein 6.5 gm/dL (6.4-8.2)
[2017-02-08 07:29] VITALS: O2SAT 99
--- NOTE | 2017-02-08 08:52 | PCM.NOTE ---
Date and Time: 02/08/17 0829 Subjective Assessment: Patient reports he had some chest pain overnight so he was placed on oxygen and given nitro and the nitro helped some. I asked for Dr. Chandler to be contacted as he had been consulted and he did not make any changes. Patient reports the chest pain is on the left side and does not radiate any where. When asked if he had taken ibuprofen or naproxen in the past for his chest pain, he said that he takes this all the time for his headaches. - Review of Systems Constitutional: No Symptoms Eyes: No Symptoms Ears, Nose, & Throat: No Symptoms Respiratory: No Symptoms Cardiac: Chest Pain Abdominal/Gastrointestinal: No Symptoms Genitourinary Symptoms: No Symptoms Musculoskeletal: No Symptoms Skin: No Symptoms Neurological: No Symptoms Objective Exam General Appearance: no apparent distress Neurologic Exam: alert, cooperative Skin Exam: normal color, warm, dry Respiratory Exam: normal breath sounds, lungs clear, No crackles/rales, No rhonchi, No wheezing Cardiovascular Exam: regular rate/rhythm, normal heart sounds, No murmur, No friction rub, No gallop Gastrointestinal/Abdomen Exam: soft, normal bowel sounds, No tenderness, No distention, No mass Extremity Exam: other (no c/c/e) OBJECTIVE DATA Vital Signs: Vital Signs - 24 hr Temp Pulse Resp BP BP Pulse Ox 02/08/17 07:28 98.2 F 58 L 18 126/58 99 02/08/17 07:13 97 02/08/17 04:00 97.9 F 56 L 20 122/57 99 02/07/17 23:42 98.0 F 57 L 18 111/63 98 02/07/17 19:59 97.8 F 66 19 122/65 98 02/07/17 19:26 74 111/62 02/07/17 19:10 57 L 118/64 02/07/17 18:49 95 02/07/17 16:00 98.2 F 55 L 16 123/59 98 02/07/17 13:44 81 16 96 02/07/17 11:43 54 L 18 115/69 97 02/07/17 11:00 99 02/07/17 10:25 98.4 F 59 L 20 119/68 99 02/07/17 10:01 98.4 F 59 L 119/68 02/07/17 09:58 68 20 121/65 99 02/07/17 09:55 98.4 F 59 L 18 119/68 100 02/07/17 09:50 55 L 18 121/65 97 02/07/17 09:35 60 20 124/68 98 Oxygen-Last 24 hours O2 Percentage 3 Liters = 32% O2 Percentage 2 Liters = 28% O2 Percentage 2 Liters = 28% O2 Percentage 2 Liters = 28% O2 Percentage 2 Liters = 28% Pain Assessment - Last Documented Pain Intensity 4 Pain Scale Used 0-10 Pain Scale Intake and Output: Intake & Output 02/06/17 02/07/17 02/08/17 02/09/17 06:59 06:59 06:59 06:59 Intake Total 3717 Balance 3717 Weight 76.022 kg Lab Results: Lab Results-Last 24 Hours 02/07/17 02/07/17 02/07/17 Range/Units 11:31 14:25 14:25 WBC (4.0-10.5) K/mm3 RBC (4.1-5.6) M/mm3 Hgb (12.5-18.0) gm/dl Hct (42-50) % MCV (78-100) fl MCH (26-32) pg MCHC (32-36) g/dl RDW (11.5-14.0) % Plt Count (150-450) K/mm3 MPV (6-9.5) fl Gran % (36.0-66.0) % Lymphocytes % (24.0-44.0) % Monocytes % (0.0-12.0) % Eosinophils % (0.00-5.0) % Basophils % (0.0-0.4) % Basophils # (0-0.4) D-Dimer (0.00-500.00) ng/mL Sodium (136-145) mEq/L Potassium (3.5-5.1) mEq/L Chloride (98-107) mEq/L Carbon Dioxide (21-32) mEq/L Anion Gap (5-15) MEQ/L BUN (9-20) mg/dL Creatinine (0.55-1.30) mg/dl Estimated GFR ML/MIN Glucose (70-110) MG/DL Hemoglobin A1c 5.3 (4.5-6.2) Calcium (8.5-10.1) mg/dL Total Bilirubin (0.2-1.0) mg/dL AST (15-37) U/L ALT (12-78) U/L Alkaline Phosphatase (46-116) U/L Troponin I < 0.017 < 0.017 (0.000-0.056) ng/ml Serum Total Protein (6.4-8.2) gm/dL Albumin (3.4-5.0) g/dL 02/07/17 02/07/17 02/07/17 Range/Units 14:25 17:22 19:35 WBC (4.0-10.5) K/mm3 RBC (4.1-5.6) M/mm3 Hgb (12.5-18.0) gm/dl Hct (42-50) % MCV (78-100) fl MCH (26-32) pg MCHC (32-36) g/dl RDW (11.5-14.0) % Plt Count (150-450) K/mm3 MPV (6-9.5) fl Gran % (36.0-66.0) % Lymphocytes % (24.0-44.0) % Monocytes % (0.0-12.0) % Eosinophils % (0.00-5.0) % Basophils % (0.0-0.4) % Basophils # (0-0.4) D-Dimer < 200.00 (0.00-500.00) ng/mL Sodium (136-145) mEq/L Potassium (3.5-5.1) mEq/L Chloride (98-107) mEq/L Carbon Dioxide (21-32) mEq/L Anion Gap (5-15) MEQ/L BUN (9-20) mg/dL Creatinine (0.55-1.30) mg/dl Estimated GFR ML/MIN Glucose (70-110) MG/DL Hemoglobin A1c (4.5-6.2) Calcium (8.5-10.1) mg/dL Total Bilirubin (0.2-1.0) mg/dL AST (15-37) U/L ALT (12-78) U/L Alkaline Phosphatase (46-116) U/L Troponin I < 0.017 < 0.017 (0.000-0.056) ng/ml Serum Total Protein (6.4-8.2) gm/dL Albumin (3.4-5.0) g/dL 02/08/17 02/08/17 Range/Units 05:10 05:10 WBC 6.1 (4.0-10.5) K/mm3 RBC 4.64 (4.1-5.6) M/mm3 Hgb 14.6 (12.5-18.0) gm/dl Hct 43.8 (42-50) % MCV 94.4 (78-100) fl MCH 31.5 (26-32) pg MCHC 33.3 (32-36) g/dl RDW 12.2 (11.5-14.0) % Plt Count 217 (150-450) K/mm3 MPV 9.6 H (6-9.5) fl Gran % 48.5 (36.0-66.0) % Lymphocytes % 40.2 (24.0-44.0) % Monocytes % 7.7 (0.0-12.0) % Eosinophils % 3.1 (0.00-5.0) % Basophils % 0.5 (0.0-0.4) % Basophils # 0.03 (0-0.4) D-Dimer (0.00-500.00) ng/mL Sodium 140 (136-145) mEq/L Potassium 4.5 (3.5-5.1) mEq/L Chloride 108 H (98-107) mEq/L Carbon Dioxide 24.8 (21-32) mEq/L Anion Gap 11.2 (5-15) MEQ/L BUN 11 (9-20) mg/dL Creatinine 0.91 (0.55-1.30) mg/dl Estimated GFR > 60 ML/MIN Glucose 110 (70-110) MG/DL Hemoglobin A1c (4.5-6.2) Calcium 8.7 (8.5-10.1) mg/dL Total Bilirubin 0.30 (0.2-1.0) mg/dL AST 20 (15-37) U/L ALT 38 (12-78) U/L Alkaline Phosphatase 54 (46-116) U/L Troponin I (0.000-0.056) ng/ml Serum Total Protein 6.5 (6.4-8.2) gm/dL Albumin 3.2 L (3.4-5.0) g/dL Radiology Exams: Radiology Procedures Category Date Time Status ECHO W/2D AND DOPPLER [US] Routine Exams 02/08/17 08:00 Ordered Assessment/Plan (1) Chest pain, rule out acute myocardial infarction Current Visit: Yes Status: Acute Assessment & Plan: Acute NH ruled out. Dumper Bailer Operator Dr. Chandler consulted. Echo ordered. Continue aspirin. Await recommendations from the reading efficiency course director. Home beta rylie held due to urine tox positive for cocaine. D -Dimer was negative. Code(s): R07.9 - CHEST PAIN, UNSPECIFIED (2) Tobacco abuse Current Visit: Yes Status: Chronic Assessment & Plan: Patient was counseled that he needs to quit smoking. Code(s): Z72.0 - TOBACCO USE (3) Cocaine use Current Visit: Yes Status: Acute Assessment & Plan: Urine tox on admission was positive for cocaine. Patient denies cocaine use. Code(s): F14.10 - COCAINE ABUSE, UNCOMPLICATED
[2017-02-08] MEDS ORDERED: NON-FORMULARY ITEM (Pitavastatin Calcium [Livalo] 2 MG) PO SCH (10:00)
[2017-02-08] MEDS ORDERED: Ecotrin 325 MG PO SCH (10:00)
[2017-02-08] MEDS ORDERED: Lopressor 25MG Tab PO SCH (10:00)
[2017-02-08 11:43] VITALS: BP 123/68; PULSE 51
[2017-02-08] MEDS: NICODERM CQ 14 MG TOP SCH (12:14)
--- NOTE | 2017-02-08 12:56 | CONS ---
CONSULT DATE: 02/08/2017 BRIEF HISTORY: This is a 41 year-old male who was seen because of chest pains. The patient has been having intermittent chest pains for several months now. He described this as sharp felt in the left arm and sometimes had a squeezing sensation in the chest. This is not related to effort. He has had previous stress test which was normal. He states that the chest pain appears to be aggravated by deep inspiration. He denies any paroxysmal nocturnal dyspnea or orthopnea. No peripheral edema. No syncopal attacks. ALLERGIES: AMOXICILLIN, ZITHROMAX, MORPHINE, POTASSIUM, SIMVASTATIN. HOME MEDICATIONS: Aspirin, metoprolol. CARDIAC RISK FACTORS: Negative for diabetes. History of hypertension. History of hyperlipidemia. He smokes about five cigarettes a day. FAMILY HISTORY: Positive for coronary artery disease. 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 No seizures. No visual disturbance. He has occasional headache. RESPIRATORY: No chronic cough. No hemoptysis. GI: No history of nausea, no vomiting, no diarrhea or constipation. : Negative for dysuria or hematuria. No flank pain. PERIPHERAL VASCULAR: No history of DVT or claudication. MUSCULOSKELETAL: No significant degenerative joint disorder. SKIN: No active dermatological problems. HEMATOLOGY: No blood dyscrasia. No blood transfusion. ENDOCRINE: No thyroid disorder. CONSTITUTIONAL: No weight gain or weight loss. No febrile episodes. PAST SURGICAL HISTORY: Cholecystectomy. Left shoulder surgery. Left fingers surgery. Left knee surgery. 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 He denies any significant alcohol intake. He denies any street drug use but he tested positive for cocaine. PHYSICAL EXAMINATION: His blood pressure is 122/57, heart rate 56, respiratory rate 14. GENERAL: The patient is a young male who is alert, oriented, who is not in any form of distress. HEENT: Unremarkable. NECK: No significant JVD. No carotid bruit. CHEST: The breath sounds are clear. CARDIAC: Heart tones are normal. The rhythm is regular. No audible gallop. ABDOMEN: Soft with normal bowel sounds. No bruit. EXTREMITIES: No significant edema with good distal pulses. SKIN: Tattoo estrada on his back. LAB DATA AND DIAGNOSTIC TESTS: The EKG showed normal sinus rhythm. The chest x-ray was negative. The troponin I is normal. CBC is normal. Liver functions normal. Serum electrolytes are within normal. Liver enzymes are normal. IMPRESSION: In essence the patient complains of chest pain somewhat atypical for angina, more pleuritic. We are going to go ahead and get an echocardiogram. In view of the patient's multiple risk factors we are going to get a coronary calcium score which can be done as an outpatient. The patient was instructed to come back to the emergency room should he have any worsening of chest pains.
[2017-02-09] MEDS ORDERED: ECOTRIN 81 MG PO SCH (10:00)
== END 2017-02-08 13:25 | disposition home or self-care (01) ==
LOC: ED 07:58 → MED SURG 09:50
PROVIDERS: ADMIT Internal Medicine; ATTEND Internal Medicine
DX: R07.9 Chest pain, unspecified (principal); Z72.0 Tobacco use; F12.90 Cannabis use, unspecified, uncomplicated; F14.10 Cocaine abuse, uncomplicated
CPT/HCPCS: 36000; 36415; 71010; 80053; 80307; 81002; 82150; 83036; 83690; 83735; 83880; 84484; 85025; 85379; 85610; 85730; 93005; 93041; 93268; 94760; 96360; 96361; 99285; G0378; A9270-GY